=== PATIENT | male | born 1960 | race Caucasian/White ===

== ENCOUNTER 2017-01-22 10:13 | Emergency (ER) | payer OTHER ==
[2017-01-22 10:19] VITALS: BP 133/83; PULSE 64; TEMP 97.4; BMI 28.0
[2017-01-22] MEDS ORDERED: IBUPROFEN 600 MG TABLET (FP) PO ONE ×2 (11:09→11:13)
--- NOTE | 2017-01-22 11:20 | PDOC ---
History of Present Illness - General Chief Complaint: Injury Stated Complaint: FALL/ RT ELBOW, SHOULDER PAIN Time Seen by Provider: 01/22/17 10:55 History Source: Patient Exam Limitations: No Limitations - History of Present Illness Initial Comments: 01/22/17 11:15 56 yr male slipped and fell this am landed on right shoulder and right elbow at 6am. Pt has swelling and pain to the elbow and pain to the right shoulder. no head trauma. Occurred: reports: this morning Severity: reports: mild Pain Location: reports: upper extremity (right shoulder and elbow) Method of Injury: Yes: fall Loss of Consciousness: no loss of consciousness Associated Symptoms (Fall): denies symptoms Past History - Past Medical History Allergies/Adverse Reactions: Allergies Allergy/AdvReac Type Severity Reaction Status Date / Time Penicillins Allergy Rash Verified 01/22/17 10:19 Home Medications: Ambulatory Orders No Home Medications 0 dose .ROUTE UTDICT 04/19/13 Asthma: No Cardiac Disorders: No Diabetes: No HTN: Yes (diet controlled, off meds now) - Surgical History Abdominal Surgery: Yes (TA) - Psycho/Social/Smoking Cessation Hx Anxiety: No Suicidal Ideation: No Smoking Status: No Smoking History: Current every day smoker Number of Cigarettes Smoked Daily: 0 Cigars Per Day: 1 Information on smoking cessation initiated: No Hx Alcohol Use: Yes (SOCIAL) Drug/Substance Use Hx: No Substance Use Type: None Trauma Specific PMHX - Complaint Specific PMHX Other History: right shoulder previous injury Review of Systems - Review of Systems Able to Perform ROS?: Yes Is the patient limited Upper Sorbian proficient: No Constitutional: No: Symptoms Reported HEENTM: No: Symptoms Reported Respiratory: No: Symptoms reported Cardiac (ROS): No: Symptoms Reported ABD/GI: No: Symptoms Reported : No: Symptoms Reported Musculoskeletal: Yes: See HPI *Physical Exam - Vital Signs Last Vital Signs Temp Pulse Resp BP Pulse Ox 97.4 F L 64 20 133/83 100 01/22/17 10:16 01/22/17 10:16 01/22/17 10:16 01/22/17 10:16 01/22/17 10:16 - Physical Exam General Appearance: Yes: Nourished HEENT: positive: EOMI, [place] Neck: positive: Supple Respiratory/Chest: positive: Lungs Clear, Normal Breath Sounds Cardiovascular: positive: Regular Rhythm, Regular Rate Gastrointestinal/Abdominal: positive: Normal Bowel Sounds, Soft Lymphatic: negative: Adenopathy Musculoskeletal: positive: Normal Inspection Extremity: positive: Normal Capillary Refill, Normal Range of Motion, Swelling ( right elbow, FROM of the joint ) Integumentary: positive: Normal Color, Dry, Warm Neurologic: positive: Fully Oriented, Alert, Normal Mood/Affect, Normal Response , Motor Strength 03/07 ED Treatment Course - RADIOLOGY Radiology Studies Ordered: Category Date Time Status ELBOW-RIGHT [RAD] Stat Radiology 01/22/17 11:08 Ordered SHOULDER-RIGHT [RAD] Stat Radiology 01/22/17 11:08 Ordered - Medications Given in the ED: ED Medications Discontinued Medications Generic Name Dose Route Start Last Admin Trade Name Freq PRN Reason Stop Dose Admin Ibuprofen 600 mg 01/22/17 11:09 01/22/17 11:14 Motrin - PO 01/22/17 11:10 600 mg ONCE ONE Administration Medical Decision Making - Medical Decision Making 01/22/17 11:20 cc: slip and fall injured right shoulder and elbow will xray to r/o fracture *DC/Admit/Observation/Transfer Diagnosis at time of Disposition: Elbow contusion Qualifiers: Encounter type: initial encounter Laterality: right Qualified Code(s): S50.01XA - Contusion of right elbow, initial encounter Shoulder contusion Qualifiers: Encounter type: initial encounter Laterality: right Qualified Code(s): S40.011A - Contusion of right shoulder, initial encounter - Discharge Dispostion Disposition: HOME Condition at time of disposition: Good - Patient Instructions Printed Discharge Instructions: How to Use a Sling Additional Instructions: apply ice every 2hrs for 15-20 minutes to the right elbow while awake for the next 2 days you can also apply ice to your shoulder take motrin 600mg every 6hrs for pain as needed use the sling while awake remove to sleep and bathe follow with your orthopedist no work until cleared by your orthopedist - Post Discharge Activity Work/School Note: Back to Work
== END 2017-01-22 11:56 | disposition home or self-care (01) ==
LOC: JERFT 10:13
DX: S40.011A Contusion of right shoulder, initial encounter (principal); S50.01XA Contusion of right elbow, initial encounter; W01.0XXA Fall on same level from slipping, tripping and stumbling without subsequent striking against object, initial encounter; Y93.89 Activity, other specified; Y92.29 Other specified public building as the place of occurrence of the external cause; Y99.0 Civilian activity done for income or pay
CPT/HCPCS: 73030-TC-RT; 73070-TC-RT; 99281-25

== ENCOUNTER 2018-01-11 19:11 | Emergency (ER) | payer OTHER ==
[2018-01-11 19:23] VITALS: BP 138/77; PULSE 88; TEMP 97.8; BMI 31.0
--- NOTE | 2018-01-11 19:39 | PDOC ---
History of Present Illness - General History Source: Patient, Old Records Exam Limitations: No Limitations - History of Present Illness Initial Comments: 01/11/18 19:50 The patient is a 57 year old male with a past medical history of left hamstring injury since yesterday. The patient states that he was working when he slipped and hyperextended his lower extremity. He states that he heard a pop in his left posterior thigh. He notes that his pain is mildly improved when elevating his leg or applying an ice pack to the painful region. <Yasmani Cantu - Last Filed: 01/11/18 20:29> <Nolan Tierney - Last Filed: 01/12/18 01:45> - General Chief Complaint: Injury Stated Complaint: INJURED LEFT THIGH YESTERDAY Past History <Yasmani Cantu - Last Filed: 01/11/18 20:29> - Past Medical History Asthma: No Cardiac Disorders: No COPD: No Diabetes: No HTN: Yes (diet controlled, off meds now) - Surgical History Abdominal Surgery: Yes (TA) - Suicide/Smoking/Psychosocial Hx Smoking Status: No Smoking History: Current every day smoker Have you smoked in the past 12 months: Yes Number of Cigarettes Smoked Daily: 0 Cigars Per Day: 1 Information on smoking cessation initiated: Yes 'Breaking Loose' booklet given: 01/11/18 Hx Alcohol Use: No Drug/Substance Use Hx: No Substance Use Type: None <Nolan Tierney - Last Filed: 01/12/18 01:45> - Past Medical History Allergies/Adverse Reactions: Allergies Allergy/AdvReac Type Severity Reaction Status Date / Time Penicillins Allergy Rash Verified 01/11/18 19:13 Home Medications: Ambulatory Orders No Home Medications 0 dose .ROUTE UTDICT 04/19/13 Review of Systems - Review of Systems Able to Perform ROS?: Yes Comments:: 01/11/18 19:51 GENERAL/CONSTITUTIONAL: No fever or chills. No weakness. GASTROINTESTINAL: No nausea, vomiting, diarrhea or constipation. MUSCULOSKELETAL: (+) Left lower extremity pain. SKIN: No rash NEUROLOGIC: No headache, vertigo, loss of consciousness, or change in strength/ sensation. <Yasmani Cantu - Last Filed: 01/11/18 20:29> *Physical Exam - Vital Signs Last Vital Signs Temp Pulse Resp BP Pulse Ox 97.8 F 88 16 138/77 99 01/11/18 19:16 01/11/18 19:16 01/11/18 19:16 01/11/18 19:16 01/11/18 19:16 - Physical Exam Comments: 01/11/18 20:29 GENERAL: Awake, alert, and fully oriented, in no acute distress HEAD: No signs of trauma EYES: PERRLA, EOMI, sclera anicteric, conjunctiva clear ENT: Auricles normal inspection, hearing grossly normal, nares patent, oropharynx clear without exudates. Moist mucosa NECK/BACK: Normal ROM, supple, no lymphadenopathy, JVD, or masses. LUNGS: Breath sounds equal, clear to auscultation bilaterally. No wheezes, and no crackles HEART: Regular rate and rhythm, normal S1 and S2, no murmurs, rubs or gallops ABDOMEN: Soft, nontender, normoactive bowel sounds. No guarding, no rebound. No masses EXTREMITIES: Normal range of motion, no edema. No clubbing or cyanosis. No cords, erythema. (+) Tenderness on deep palpation to left posterior thigh. NEUROLOGICAL: Cranial nerves II through XII grossly intact. Normal speech, normal gait SKIN: Warm, Dry, normal turgor, no rashes or lesions noted. <Yasmani Cantu - Last Filed: 01/11/18 20:29> - Vital Signs Last Vital Signs Temp Pulse Resp BP Pulse Ox 97.8 F 88 16 138/77 99 01/11/18 19:16 01/11/18 19:16 01/11/18 19:16 01/11/18 19:16 01/11/18 19:16 <Nolan Tierney - Last Filed: 01/12/18 01:45> Medical Decision Making - Medical Decision Making 01/12/18 01:45 hamstring tendon injury analgesia ice <Nolan Tierney - Last Filed: 01/12/18 01:45> *DC/Admit/Observation/Transfer - Attestations Scribe Attestion: 01/11/18 19:51 Documentation prepared by Yasmani Cantu, acting as medical office coordinator for Nolan Tierney MD. <Yasmani Cantu - Last Filed: 01/11/18 20:29> <Nolan Tierney - Last Filed: 01/12/18 01:45> Diagnosis at time of Disposition: Hamstring injury Qualifiers: Encounter type: initial encounter Laterality: left Qualified Code(s): S76.302A - Unspecified injury of muscle, fascia and tendon of the posterior muscle group at thigh level, left thigh, initial encounter - Discharge Dispostion Disposition: HOME Condition at time of disposition: Stable - Patient Instructions Printed Discharge Instructions: DI for Hamstring Strain - Post Discharge Activity Forms/Work/School Notes: Back to Work
[2018-01-11] MEDS ORDERED: KETOROLAC TROMETHAMINE 60 MG/2 ML VIAL IM ONE (19:46)
[2018-01-11] MEDS ORDERED: KETOROLAC TROMETHAMINE 60 MG/2 ML VIAL ONE (19:50)
== END 2018-01-11 20:17 | disposition home or self-care (01) ==
LOC: FER 19:11
PROC: 3E0233Z Introduction of Anti-inflammatory into Muscle, Percutaneous Approach (ICD-10-PCS; principal; 2018-01-11)
DX: M79.605 Pain in left leg (principal); S76.302A Unspecified injury of muscle, fascia and tendon of the posterior muscle group at thigh level, left thigh, initial encounter; X58.XXXA Exposure to other specified factors, initial encounter; Y93.89 Activity, other specified; Y92.9 Unspecified place or not applicable
CPT/HCPCS: 99281-25

== ENCOUNTER 2023-10-18 07:31 | Emergency (ER) | payer OTHER, BC ==
[2023-10-18 07:44] VITALS: BP 96/68; PULSE 68; RESP 18; TEMP 98.3; BMI 30.4
[2023-10-18] MEDS ORDERED: DEXAMETHASONE SOD PHOSPHATE 10 MG/1 ML VIAL ONE (07:59)
[2023-10-18] MEDS ORDERED: DEXAMETHASONE SOD PHOSPHATE 10 MG/1 ML VIAL IM ONE (08:06)
== END 2023-10-18 10:20 | disposition home or self-care (01) ==
LOC: JER 07:31 → JERFT 07:31
PROC: 3E023GC Introduction of Other Therapeutic Substance into Muscle, Percutaneous Approach (ICD-10-PCS; principal; 2023-10-18)
DX: M25.572 Pain in left ankle and joints of left foot (principal); S96.912A Strain of unspecified muscle and tendon at ankle and foot level, left foot, initial encounter; X50.1XXA Overexertion from prolonged static or awkward postures, initial encounter; Y99.0 Civilian activity done for income or pay
CPT/HCPCS: 73610-TC-LT-FY; 73630-TC-LT; 99284-25; J1100

== ENCOUNTER 2025-06-09 09:41 | Emergency (ER) | payer OTHER, BC ==
[2025-06-09 09:48] VITALS: BP 139/72; PULSE 65; RESP 20; TEMP 97.8; BMI 33.4
[2025-06-09] MEDS ORDERED: predniSONE 20 MG TABLET (UD) ONE (10:18)
[2025-06-09] MEDS ORDERED: ACETAMINOPHEN 500 MG TABLET (FP) ONE (10:18)
[2025-06-09] MEDS: predniSONE 20 MG TABLET (UD) PO ONE (10:24)
[2025-06-09] MEDS: ACETAMINOPHEN 500 MG TABLET (FP) PO ONE (10:24)
== END 2025-06-09 11:23 | disposition home or self-care (01) ==
LOC: JERFT 09:41
DX: M25.521 Pain in right elbow (principal)
CPT/HCPCS: 99283-25